=== PATIENT | male | born 1945 | race Caucasian/White ===

== ENCOUNTER 2019-08-08 17:56 | Inpatient (IN) | payer MEDICARE ==
[~2019-08-08] VITALS: Ht 177.8 cm; Wt 83.5 kg
[2019-08-08 19:30] VITALS: BP 93/56
[2019-08-08] MEDS ORDERED: SIMETHICONE 80 MG CHEWABLE TABLET CHEW PRN (20:45)
[2019-08-08] MEDS ORDERED: BISACODYL 5 MG EC TABLET PO PRN (20:45)
[2019-08-08] MEDS ORDERED: ONDANSETRON HCL 4 MG TABLET PO PRN (20:45)
[2019-08-08] MEDS: LACTULOSE 20 GM/30 ML SOLUTION UDCUP PO SCH (21:00)
[2019-08-08] MEDS: SENNA 187 MG TABLET PO SCH (21:00)
[2019-08-08] MEDS: TAMSULOSIN HCL 0.4 MG CAPSULE PO SCH (22:00)
[2019-08-08] MEDS: OxyCODONE HCL 5 MG IR TABLET PO PRN (22:00)
[2019-08-08] MEDS: MELATONIN 5 MG TABLET PO SCH (22:00)
[2019-08-08 22:42] VITALS: BP 93/56
[2019-08-09] VITALS: BP 100/54
[2019-08-09] MEDS: SUCRALFATE 1 GM TABLET PO SCH ×5 (00:20→12:00)
[2019-08-09] MEDS: OMEPRAZOLE 20 MG CAPSULE PO SCH (06:15)
[2019-08-09] MEDS: DRONABINOL 2.5 MG CAPSULE PO SCH ×2 (06:15→16:30)
[2019-08-09 07:47] LABS: BAND NEUTROPHILS % (MANUAL) 0 % (0-5); HEMOGLOBIN 9.7 g/dL (13.5-17.5); MEAN CORPUSCULAR HEMOGLOBIN 29.2 pg (26.0-34.0); MEAN CORPUSCULAR HGB CONC 33.3 G/dL (31.0-37.0); MEAN CORPUSCULAR VOLUME 88 fL (80-100); PLATELET COUNT (AUTO) 280 K/uL (150-450); RED BLOOD CELL COUNT(AUTO) 3.31 MIL/uL (4.50-5.90); RED CELL DISTRIBUTION WIDTH 15.3 % (11.5-14.5)
[2019-08-09 08:09] LABS: ALBUMIN 1.9 g/dL (3.4-5.0); ALKALINE PHOSPHATASE 91 U/L (46-116); ANION GAP 6 mmol/L (8-16); ASPARTATE AMINOTRANSFERASE 23 U/L (15-37); BILIRUBIN,TOTAL 0.8 mg/dL (0.1-1.0); CALCIUM, TOTAL 8.1 mg/dL (8.8-10.5); CARBON DIOXIDE 28 mmol/L (22-29); CHLORIDE 100 mmol/L (98-107); CREATININE 0.71 mg/dL (0.60-1.30); GLUCOSE,RANDOM 108 mg/dL (70-110); POTASSIUM 4.3 mmol/L (3.5-5.1); SODIUM SERUM 134 mmol/L (136-145); TOTAL PROTEIN, SERUM 5.4 g/dL (6.4-8.2); UREA NITROGEN, BLOOD 14 mg/dL (7-18)
[2019-08-09 08:12] LABS: GLOMERULAR FILTR. RATE CALC > 60 mL/min (>60)
[2019-08-09 08:18] LABS: ALANINE AMINOTRANSFERASE 6 U/L (12-78)
[2019-08-09] MEDS: CHOLECALCIFEROL (VIT D3) 1,000 UNITS TABLET PO SCH (08:42)
[2019-08-09] MEDS: MULTIVITAMINS WITH MINERALS, THERAPEUTIC TABLET PO SCH (08:42)
[2019-08-09 08:48] VITALS: BP 98/57
[2019-08-09] MEDS: LACTULOSE 20 GM/30 ML SOLUTION UDCUP PO SCH ×2 (08:53→20:51)
[2019-08-09] MEDS: SENNA 187 MG TABLET PO SCH ×2 (08:53→20:51)
[2019-08-09 09:39] LABS: EOSINOPHILS % (MANUAL) 1 % (1-6); LYMPHOCYTES % (MANUAL) 6 % (22-44); MONOCYTES % (MANUAL) 2 % (2-9); SEGMENTED NEUTROPHILS % 91 % (40-70)
[2019-08-09] MEDS: OxyCODONE HCL 5 MG IR TABLET PO PRN (11:11)
[2019-08-09] MEDS ORDERED: ACETAMINOPHEN 325 MG TABLET PO PRN (13:15)
[2019-08-09 16:39] VITALS: BP 98/56
[2019-08-09] MEDS: SUCRALFATE 1 GM/10 ML SUSPENSION UDCUP PO SCH ×2 (18:00→23:26)
[2019-08-09] MEDS: TAMSULOSIN HCL 0.4 MG CAPSULE PO SCH (20:51)
[2019-08-09] MEDS: MELATONIN 5 MG TABLET PO SCH (20:51)
[2019-08-09 23:00] VITALS: BP 102/57
[2019-08-10] MEDS: SUCRALFATE 1 GM/10 ML SUSPENSION UDCUP PO SCH ×3 (06:00→17:16)
[2019-08-10] MEDS: DRONABINOL 2.5 MG CAPSULE PO SCH ×2 (06:18→17:15)
[2019-08-10] MEDS: OMEPRAZOLE 20 MG CAPSULE PO SCH (06:18)
[2019-08-10 07:54] LABS: ANION GAP 4 mmol/L (8-16); CALCIUM, TOTAL 8.2 mg/dL (8.8-10.5); CARBON DIOXIDE 30 mmol/L (22-29); CHLORIDE 100 mmol/L (98-107); GLUCOSE,RANDOM 124 mg/dL (70-110); POTASSIUM 4.9 mmol/L (3.5-5.1); SODIUM SERUM 134 mmol/L (136-145); UREA NITROGEN, BLOOD 16 mg/dL (7-18)
[2019-08-10 07:57] LABS: GLOMERULAR FILTR. RATE CALC > 60 mL/min (>60)
[2019-08-10] MEDS: MULTIVITAMINS WITH MINERALS, THERAPEUTIC TABLET PO SCH (09:00)
[2019-08-10] MEDS: CHOLECALCIFEROL (VIT D3) 1,000 UNITS TABLET PO SCH (09:00)
[2019-08-10] MEDS: LACTULOSE 20 GM/30 ML SOLUTION UDCUP PO SCH ×2 (09:00→21:00)
[2019-08-10] MEDS: SENNA 187 MG TABLET PO SCH ×2 (09:00→21:00)
[2019-08-10 10:48] VITALS: BP 107/50
[2019-08-10 15:27] VITALS: BP 102/53
[2019-08-10] MEDS: TAMSULOSIN HCL 0.4 MG CAPSULE PO SCH (19:52)
[2019-08-10] MEDS: MELATONIN 5 MG TABLET PO SCH (19:52)
[2019-08-10 23:40] VITALS: BP 103/52
[2019-08-11] MEDS: SUCRALFATE 1 GM/10 ML SUSPENSION UDCUP PO SCH ×4 (06:00→17:38)
[2019-08-11] MEDS: OMEPRAZOLE 20 MG CAPSULE PO SCH (07:00)
[2019-08-11] MEDS: DRONABINOL 2.5 MG CAPSULE PO SCH ×2 (07:00→16:30)
[2019-08-11 07:39] LABS: BASOPHILS % (AUTO) 0.2 % (0.0-2.0); EOSINOPHILS % (AUTO) 0.3 % (1.0-6.0); HEMATOCRIT 28.1 % (41-53); HEMOGLOBIN 9.6 g/dL (13.5-17.5); LYMPHOCYTES # (AUTO) 0.3 K/uL (1.0-4.8); LYMPHOCYTES % (AUTO) 3.5 % (22.0-44.0); MEAN CORPUSCULAR VOLUME 85 fL (80-100); MONOCYTES # (AUTO) 0.8 K/uL (0.1-1.0); MONOCYTES % (AUTO) 9.3 % (2.0-9.0); NEUTROPHILS # (AUTO) 7.5 K/uL (1.8-7.7); PLATELET COUNT (AUTO) 273 K/uL (150-450); RED CELL DISTRIBUTION WIDTH 15.4 % (11.5-14.5)
[2019-08-11 07:41] VITALS: BP 101/59
[2019-08-11 07:50] LABS: ANION GAP 9 mmol/L (8-16); CARBON DIOXIDE 27 mmol/L (22-29); CHLORIDE 100 mmol/L (98-107); CREATININE 0.73 mg/dL (0.60-1.30); GLUCOSE,RANDOM 114 mg/dL (70-110); POTASSIUM 4.4 mmol/L (3.5-5.1); SODIUM SERUM 136 mmol/L (136-145); UREA NITROGEN, BLOOD 15 mg/dL (7-18)
[2019-08-11 07:59] LABS: GLOMERULAR FILTR. RATE CALC > 60 mL/min (>60)
[2019-08-11 08:39] LABS: NEUTROPHILS % (AUTO) 86.7 % (40.0-70.0)
[2019-08-11] MEDS: LACTULOSE 20 GM/30 ML SOLUTION UDCUP PO SCH ×3 (09:00→21:00)
[2019-08-11] MEDS: SENNA 187 MG TABLET PO SCH ×2 (09:45→21:00)
[2019-08-11] MEDS: CHOLECALCIFEROL (VIT D3) 1,000 UNITS TABLET PO SCH (09:47)
[2019-08-11] MEDS: MULTIVITAMINS WITH MINERALS, THERAPEUTIC TABLET PO SCH (09:47)
[2019-08-11 16:58] VITALS: BP 118/69
[2019-08-11] MEDS: TAMSULOSIN HCL 0.4 MG CAPSULE PO SCH (21:00)
[2019-08-11] MEDS: MELATONIN 5 MG TABLET PO SCH (21:03)
[2019-08-11 23:00] VITALS: BP 101/62
[2019-08-12 00:39] LABS: APPEARANCE,URINE CLOUDY (CLEAR); GLUCOSE, URINE (UA) NEGATIVE (NEGATIVE); KETONES,URINE 15 mg/dL (NEGATIVE); LEUKOCYTE ESTERASE ,URINE LARGE (NEGATIVE); NITRATE,URINE NEGATIVE (NEGATIVE); OCCULT BLOOD,URINE LARGE (NEGATIVE); PH,URINE 6.5 (5.0-8.0); PROTEIN,URINE TRACE (NEGATIVE)
[2019-08-12 00:43] LABS: BILIRUBIN,URINE PRELIM. POSITIVE (NEGATIVE)
[2019-08-12 00:44] LABS: BACTERIA,URINE Moderate /HPF (None Seen); RBC,URINE 51-100 /HPF (0-2); SQUAMOUS EPITHELIAL CELL,UR Rare /LPF (None Seen); WBC,URINE 51-100 /HPF (0-5)
[2019-08-12] MEDS: SUCRALFATE 1 GM/10 ML SUSPENSION UDCUP PO SCH ×5 (06:00→21:24)
[2019-08-12] MEDS: OMEPRAZOLE 20 MG CAPSULE PO SCH (06:10)
[2019-08-12] MEDS: DRONABINOL 2.5 MG CAPSULE PO SCH ×2 (06:10→21:24)
[2019-08-12 07:59] VITALS: BP 114/58
[2019-08-12] MEDS: SENNA 187 MG TABLET PO SCH ×2 (08:55→21:00)
[2019-08-12] MEDS: CHOLECALCIFEROL (VIT D3) 1,000 UNITS TABLET PO SCH (08:55)
[2019-08-12] MEDS: LACTULOSE 20 GM/30 ML SOLUTION UDCUP PO SCH ×3 (08:55→21:25)
[2019-08-12] MEDS: MULTIVITAMINS WITH MINERALS, THERAPEUTIC TABLET PO SCH (08:55)
[2019-08-12] MEDS: CefTRIAXone 1 GM/DEXTROSE 50 ML IV SCH (10:00)
[2019-08-12 10:40] LABS: INR 1.2 (0.9-1.1)
[2019-08-12 16:00] VITALS: BP 112/58
[2019-08-12] MEDS: MELATONIN 5 MG TABLET PO SCH (21:00)
[2019-08-12] MEDS: TAMSULOSIN HCL 0.4 MG CAPSULE PO SCH (21:25)
[2019-08-12] MEDS: TraZODone HCL 100 MG TABLET PO SCH (21:25)
[2019-08-12 23:05] VITALS: BP 96/68
[2019-08-13] MEDS: OxyCODONE HCL 5 MG IR TABLET PO PRN (05:31)
[2019-08-13] MEDS: OMEPRAZOLE 20 MG CAPSULE PO SCH (05:32)
[2019-08-13] MEDS: DRONABINOL 2.5 MG CAPSULE PO SCH ×3 (05:32→21:30)
[2019-08-13] MEDS: SUCRALFATE 1 GM/10 ML SUSPENSION UDCUP PO SCH ×5 (06:00→23:10)
[2019-08-13 08:48] VITALS: BP 104/55
[2019-08-13] MEDS: LACTULOSE 20 GM/30 ML SOLUTION UDCUP PO SCH ×2 (09:00→20:59)
[2019-08-13] MEDS: SENNA 187 MG TABLET PO SCH ×2 (09:00→20:59)
[2019-08-13] MEDS: MULTIVITAMINS WITH MINERALS, THERAPEUTIC TABLET PO SCH (09:00)
[2019-08-13] MEDS: CHOLECALCIFEROL (VIT D3) 1,000 UNITS TABLET PO SCH (09:00)
[2019-08-13] MEDS: CefTRIAXone 1 GM/DEXTROSE 50 ML IV SCH (10:00)
[2019-08-13 15:17] VITALS: BP 103/58
[2019-08-13] MEDS ORDERED: SODIUM CHLORIDE 0.9% 1,000 ML IV ONE (15:30)
[2019-08-13] MEDS ORDERED: DICLOFENAC SODIUM 1% 100 GM GEL [2GM] TP SCH (16:00)
[2019-08-13] MEDS ORDERED: CefTRIAXone 1 GM/DEXTROSE 50 ML IV ONE (20:00)
[2019-08-13] MEDS: TAMSULOSIN HCL 0.4 MG CAPSULE PO SCH (20:59)
[2019-08-13] MEDS: MELATONIN 5 MG TABLET PO SCH (20:59)
[2019-08-13] MEDS: TraZODone HCL 100 MG TABLET PO SCH (20:59)
[2019-08-13 23:00] VITALS: BP 106/54
[2019-08-13] MEDS: 0.9% SODIUM CHLORIDE 10 ML SYRINGE IVP SCH (23:06)
[2019-08-14] VITALS (9 sets, daily range): BP systolic 103–120; BP diastolic 50–68
[2019-08-14] MEDS: SUCRALFATE 1 GM/10 ML SUSPENSION UDCUP PO SCH ×4 (06:00→23:39)
[2019-08-14] MEDS: DRONABINOL 2.5 MG CAPSULE PO SCH ×2 (06:13→16:30)
[2019-08-14] MEDS: OMEPRAZOLE 20 MG CAPSULE PO SCH (06:13)
[2019-08-14 06:19] LABS: BASOPHILS % (AUTO) 0.4 % (0.0-2.0); EOSINOPHILS % (AUTO) 0.9 % (1.0-6.0); HEMOGLOBIN 9.1 g/dL (13.5-17.5); LYMPHOCYTES # (AUTO) 0.3 K/uL (1.0-4.8); LYMPHOCYTES % (AUTO) 4.7 % (22.0-44.0); MEAN CORPUSCULAR HEMOGLOBIN 28.4 pg (26.0-34.0); MEAN CORPUSCULAR HGB CONC 33.7 G/dL (31.0-37.0); MEAN CORPUSCULAR VOLUME 85 fL (80-100); MONOCYTES # (AUTO) 0.7 K/uL (0.1-1.0); MONOCYTES % (AUTO) 12.3 % (2.0-9.0); NEUTROPHILS # (AUTO) 4.4 K/uL (1.8-7.7); NEUTROPHILS % (AUTO) 81.7 % (40.0-70.0); PLATELET COUNT (AUTO) 230 K/uL (150-450); RED BLOOD CELL COUNT(AUTO) 3.19 MIL/uL (4.50-5.90); RED CELL DISTRIBUTION WIDTH 15.5 % (11.5-14.5)
[2019-08-14 06:48] LABS: ALBUMIN 1.7 g/dL (3.4-5.0); ALKALINE PHOSPHATASE 83 U/L (46-116); ANION GAP 11 mmol/L (8-16); ASPARTATE AMINOTRANSFERASE 25 U/L (15-37); CALCIUM, TOTAL 7.8 mg/dL (8.8-10.5); CARBON DIOXIDE 26 mmol/L (22-29); CHLORIDE 101 mmol/L (98-107); CREATININE 0.75 mg/dL (0.60-1.30); GLOMERULAR FILTR. RATE CALC > 60 mL/min (>60); GLUCOSE,RANDOM 116 mg/dL (70-110); POTASSIUM 3.4 mmol/L (3.5-5.1); SODIUM SERUM 138 mmol/L (136-145); UREA NITROGEN, BLOOD 14 mg/dL (7-18)
[2019-08-14 06:58] LABS: ALANINE AMINOTRANSFERASE 15 U/L (12-78); BILIRUBIN,TOTAL 0.6 mg/dL (0.1-1.0); TOTAL PROTEIN, SERUM 5.1 g/dL (6.4-8.2)
[2019-08-14] MEDS: LACTULOSE 20 GM/30 ML SOLUTION UDCUP PO SCH ×2 (09:00→20:15)
[2019-08-14] MEDS: SENNA 187 MG TABLET PO SCH ×3 (09:00→21:00)
[2019-08-14] MEDS: 0.9% SODIUM CHLORIDE 10 ML SYRINGE IVP SCH ×3 (09:06→23:39)
[2019-08-14] MEDS: MULTIVITAMINS WITH MINERALS, THERAPEUTIC TABLET PO SCH (11:51)
[2019-08-14] MEDS: CHOLECALCIFEROL (VIT D3) 1,000 UNITS TABLET PO SCH (11:52)
[2019-08-14] MEDS: AMOX TR/POT CLAV 250/62.5 MG/5 ML SUSPENSION ORAL.SYG PO SCH ×2 (17:46→20:16)
[2019-08-14] MEDS: POTASSIUM CHLORIDE 10% 40 MEQ/30 ML LIQUID UDCUP PO SCH (17:47)
[2019-08-14] MEDS: TraZODone HCL 100 MG TABLET PO SCH (20:14)
[2019-08-14] MEDS: MELATONIN 5 MG TABLET PO SCH (21:00)
[2019-08-14] MEDS ORDERED: AMOX TR/POT CLAV 250/62.5 MG/5 ML SUSPENSION ORAL.SYG PO SCH (21:00)
[2019-08-14] MEDS: TAMSULOSIN HCL 0.4 MG CAPSULE PO SCH (21:24)
[2019-08-14] MEDS: OxyCODONE HCL 5 MG IR TABLET PO PRN (23:41)
[2019-08-15] MEDS: SUCRALFATE 1 GM/10 ML SUSPENSION UDCUP PO SCH ×3 (06:00→19:37)
[2019-08-15] MEDS: DRONABINOL 2.5 MG CAPSULE PO SCH ×2 (06:11→16:18)
[2019-08-15] MEDS: OMEPRAZOLE 20 MG CAPSULE PO SCH (06:12)
[2019-08-15 07:10] VITALS: BP_SYST 113; BP_SYST 137; BP_DIAS 64; BP_DIAS 78
[2019-08-15] MEDS: LACTULOSE 20 GM/30 ML SOLUTION UDCUP PO SCH ×3 (09:00→20:31)
[2019-08-15] MEDS: 0.9% SODIUM CHLORIDE 10 ML SYRINGE IVP SCH ×2 (09:32→16:18)
[2019-08-15] MEDS: AMOX TR/POT CLAV 250/62.5 MG/5 ML SUSPENSION ORAL.SYG PO SCH ×3 (09:32→19:37)
[2019-08-15] MEDS: SENNA 187 MG TABLET PO SCH ×2 (09:33→20:31)
[2019-08-15] MEDS: MULTIVITAMINS WITH MINERALS, THERAPEUTIC TABLET PO SCH (09:33)
[2019-08-15] MEDS: CHOLECALCIFEROL (VIT D3) 1,000 UNITS TABLET PO SCH (09:33)
[2019-08-15] MEDS: POTASSIUM CHLORIDE 10% 40 MEQ/30 ML LIQUID UDCUP PO SCH (09:35)
[2019-08-15] MEDS: OxyCODONE HCL 5 MG IR TABLET PO PRN (14:46)
[2019-08-15 15:40] VITALS: BP 127/57
[2019-08-15] MEDS: TraZODone HCL 100 MG TABLET PO SCH (20:31)
[2019-08-15] MEDS: MELATONIN 5 MG TABLET PO SCH (20:31)
[2019-08-15] MEDS: TAMSULOSIN HCL 0.4 MG CAPSULE PO SCH (20:31)
[2019-08-15] MEDS ORDERED: OMEP20 PO (22:23)
[2019-08-15] MEDS ORDERED: DRON2.5C19 PO (22:23)
[2019-08-15] MEDS ORDERED: LACT30L PO (22:23)
[2019-08-15] MEDS ORDERED: TRAZ-220 PO (22:23)
[2019-08-15] MEDS ORDERED: MELA5TAB3 PO (22:23)
[2019-08-15] MEDS ORDERED: [UNRECOGNIZED DRUG - CODE] PO (22:23)
[2019-08-15] MEDS ORDERED: CHOL200059 PO (22:23)
[2019-08-15] MEDS ORDERED: TAMS-1 PO (22:23)
[2019-08-15] MEDS ORDERED: KDUR20 PO (22:23)
[2019-08-15] MEDS ORDERED: MULT-1239 PO (22:23)
[2019-08-15] MEDS ORDERED: SUCR1TAB PO (22:23)
[2019-08-16 00:30] VITALS: BP 106/54
[2019-08-16] MEDS: OxyCODONE HCL 5 MG IR TABLET PO PRN ×2 (00:30→14:14)
[2019-08-16] MEDS: 0.9% SODIUM CHLORIDE 10 ML SYRINGE IVP SCH ×3 (00:31→16:00)
[2019-08-16 01:00] VITALS: BP 106/54
[2019-08-16] MEDS: SUCRALFATE 1 GM/10 ML SUSPENSION UDCUP PO SCH ×4 (05:53→18:00)
[2019-08-16] MEDS: DRONABINOL 2.5 MG CAPSULE PO SCH ×2 (06:48→16:16)
[2019-08-16] MEDS: OMEPRAZOLE 20 MG CAPSULE PO SCH (06:49)
[2019-08-16 07:50] VITALS: BP 113/55
[2019-08-16] MEDS: LACTULOSE 20 GM/30 ML SOLUTION UDCUP PO SCH ×2 (08:38→21:00)
[2019-08-16] MEDS: POTASSIUM CHLORIDE 10% 40 MEQ/30 ML LIQUID UDCUP PO SCH (08:38)
[2019-08-16] MEDS: CHOLECALCIFEROL (VIT D3) 1,000 UNITS TABLET PO SCH (08:38)
[2019-08-16] MEDS: MULTIVITAMINS WITH MINERALS, THERAPEUTIC TABLET PO SCH (08:38)
[2019-08-16] MEDS: SENNA 187 MG TABLET PO SCH ×2 (08:38→21:00)
[2019-08-16] MEDS: AMOX TR/POT CLAV 250/62.5 MG/5 ML SUSPENSION ORAL.SYG PO SCH ×3 (08:38→21:42)
[2019-08-16] MEDS ORDERED: SODIUM CHLORIDE 0.9% 1,000 ML IV ONE (12:45)
[2019-08-16 15:42] VITALS: BP 95/54
[2019-08-16 20:00] VITALS: BP 97/46
[2019-08-16] MEDS: TAMSULOSIN HCL 0.4 MG CAPSULE PO SCH (21:00)
[2019-08-16] MEDS: TraZODone HCL 100 MG TABLET PO SCH (21:42)
[2019-08-16] MEDS: MELATONIN 5 MG TABLET PO SCH (21:42)
[2019-08-17] VITALS: BP 94/58
[2019-08-17 02:15] VITALS: BP 94/58
[2019-08-17] MEDS: SUCRALFATE 1 GM/10 ML SUSPENSION UDCUP PO SCH ×3 (06:00→12:00)
[2019-08-17] MEDS: OMEPRAZOLE 20 MG CAPSULE PO SCH (06:07)
[2019-08-17] MEDS: DRONABINOL 2.5 MG CAPSULE PO SCH (06:07)
[2019-08-17] MEDS: 0.9% SODIUM CHLORIDE 10 ML SYRINGE IVP SCH ×2 (08:00)
[2019-08-17] MEDS: MULTIVITAMINS WITH MINERALS, THERAPEUTIC TABLET PO SCH (09:00)
[2019-08-17] MEDS: POTASSIUM CHLORIDE 10% 40 MEQ/30 ML LIQUID UDCUP PO SCH (09:00)
[2019-08-17] MEDS: LACTULOSE 20 GM/30 ML SOLUTION UDCUP PO SCH (09:00)
[2019-08-17] MEDS: SENNA 187 MG TABLET PO SCH (09:00)
[2019-08-17] MEDS: CHOLECALCIFEROL (VIT D3) 1,000 UNITS TABLET PO SCH (09:00)
[2019-08-17] MEDS: AMOX TR/POT CLAV 250/62.5 MG/5 ML SUSPENSION ORAL.SYG PO SCH (09:00)
[2019-08-17] MEDS ORDERED: SENN-176 PO (09:11)
[2019-08-17] MEDS ORDERED: OXYC5 PO (09:11)
[2019-08-17 10:00] VITALS: BP 116/65
[2019-08-17] MEDS: OxyCODONE HCL 5 MG IR TABLET PO PRN (10:17)
== END 2019-08-17 16:30 | disposition hospice, inpatient (51) | DRG 947 ==
LOC: 2WR 19:00
PROVIDERS: ATTEND Physical Medicine & Rehabilitation
DX: R53.81 Other malaise (principal); E43 Unspecified severe protein-calorie malnutrition; I26.99 Other pulmonary embolism without acute cor pulmonale; C16.9 Malignant neoplasm of stomach, unspecified; F11.20 Opioid dependence, uncomplicated; K92.2 Gastrointestinal hemorrhage, unspecified; J91.8 Pleural effusion in other conditions classified elsewhere; N39.0 Urinary tract infection, site not specified; R18.8 Other ascites; D63.8 Anemia in other chronic diseases classified elsewhere; G89.29 Other chronic pain; M54.9 Dorsalgia, unspecified; D50.9 Iron deficiency anemia, unspecified; R33.9 Retention of urine, unspecified; K59.03 Drug induced constipation; K31.89 Other diseases of stomach and duodenum; T40.2X5A Adverse effect of other opioids, initial encounter; G47.00 Insomnia, unspecified; E86.0 Dehydration; E87.6 Hypokalemia; N40.0 Benign prostatic hyperplasia without lower urinary tract symptoms; F43.21 Adjustment disorder with depressed mood; K21.9 Gastro-esophageal reflux disease without esophagitis; Z86.711 Personal history of pulmonary embolism; Z87.891 Personal history of nicotine dependence; Z92.21 Personal history of antineoplastic chemotherapy; Z92.3 Personal history of irradiation; Z68.26 Body mass index [BMI] 26.0-26.9, adult; Z82.0 Family history of epilepsy and other diseases of the nervous system; Y92.89 Other specified places as the place of occurrence of the external cause; Z79.899 Other long term (current) drug therapy
CPT/HCPCS: 76700; 85007; 87081; 87086; 97110; 97112; 97116; 97163; 97166; 97530; 97535; 99366; J0696; J7030; Q0162; Q0167